=== PATIENT | male | born 1940 | race Caucasian/White ===

== ENCOUNTER → 2021-05-03 08:32 | Outpatient (CLI) | payer MEDICARE, BC, SELFPAY ==
[2021-05-03 09:48] LABS: Add Manual Diff / Slide Review NO; Basophils Absolute Auto 100 /uL (0-100); Basophils Percent Auto 2.6 % (0-2); Eosinophils Absolute Auto 100 /uL (0-450); Eosinophils Percent Auto 2.4 % (2-4); Hematocrit 29.5 % (41-53); Hemoglobin 9.3 g/dL (13.5-17.5); Lymphocytes Absolute Auto 800 /uL (1100-4500); Lymphocytes Percent Auto 23.3 % (25-40); Mean Corpuscular HGB Conc 31.4 % (30-36); Mean Corpuscular Hemoglobin 23.1 PG (26-34); Mean Corpuscular Volume 73.7 fL (80-100); Monocytes Absolute Auto 400 /uL (0-900); Monocytes Percent Auto 10.9 % (3-14); Neutrophils Absolute Auto 2200 /uL (1500-7000); Neutrophils Percent Auto 60.8 % (50-75); Platelet Count 304 X10^3/uL (150-400); Red Blood Cell Count 4.01 X10^6/uL (4.5-5.9); Red Cell Distribution Width 16.9 % (11.6-14.8); White Blood Cell Count 3.6 X10^3/uL (4.5-11.0)
[2021-05-03 10:12] LABS: Alanine Aminotransferase 20 IU/L (<50); Albumin 3.6 g/dL (3.5-5.0); Albumin Globulin Ratio 1.4 (1.0-2.8); Alkaline Phosphatase 62 U/L (38-126); Aspartate Aminotransferase 31 IU/L (17-59); BUN Creatinine Ratio 15.7 (6-22); Bilirubin Total 0.3 mg/dL (0.2-1.3); Blood Urea Nitrogen 21 mg/dL (9-20); Calcium 8.9 mg/dL (8.4-10.2); Carbon Dioxide 25 mmol/L (22-32); Chloride 110 mmol/L (98-107); Estimated Glomerular Filt Rate 51.4 mL/min (>60); Globulin 2.5 g/dL (1.7-4.1); Glucose 107 mg/dL (80-110); HEMOLYSIS < 15 (0-50); Potassium 4.4 mmol/L (3.4-5.1); Sodium 139 mmol/L (137-145); Total Protein 6.1 g/dL (6.3-8.2)
[2021-05-03 10:47] LABS: Ferritin 6 ng/mL (18-464)
[2021-05-03 11:01] LABS: Vitamin B12 967 pg/mL (239-931)
[2021-05-03 11:38] LABS: Iron 11 ug/dL (49-181)
[2021-05-03 11:47] LABS: Percent Iron Saturation 3 % (20-50); Total Iron Binding Capacity 392 ug/dL (261-462)
[2021-05-05 15:21] LABS: Albumin 3.5 g/dL (2.9-4.4); Alpha 1 Globulin 0.2 g/dL (0.0-0.4); Alpha 2 Globulin 0.6 g/dL (0.4-1.0); Beta 1 Globulin 0.9 g/dL (0.7-1.3); Gamma Globulin 0.6 g/dL (0.4-1.8); Protein, Total 5.8 g/dL (6.0-8.5)
== END ==
PROVIDERS: PCP Family Medicine; Referring Provider Family Medicine; Visit Provider Family Medicine
DX: D64.9 Anemia, unspecified (principal)
CPT/HCPCS: 36415; 80053; 82607; 82728; 83540; 83550; 84155; 84165; 85025